=== PATIENT | female | born 1965 | race Caucasian/White ===

== ENCOUNTER → 2016-06-30 | Outpatient (CLI) | payer MEDICAID ==
[~2016-06-30] VITALS: Ht 154.9 cm; Wt 109.8 kg
[~2016-06-30] MED LIST: ADVIL200 MG PO; ALLEGRA 180MG180 MG PO; ALLEGRA ALLERGY60 MG PO; AMOXICILLIN875 MG PO; B COMPLEX & B121 TAB PO; GINGER500 MG PO; GLUCOPHAGE500 MG/TAB PO; IRON325 MG PO; K-PHOS ORIGINA500 MG PO; MAGNESIUM; MOBIC15 MG PO; MULTIPLE VITAMI1 CAP PO; NORCO 325 MG-51 TAB PO; OMEGA-3 FISH1000 MG PO; PERCOCET 325 MG1 TA2 PO; SELENIUM200 MC5 PO; SINGULAIR 110 MG/TAB PO; TUMERIC PO; VITAMIN C500 MG PO; WELLBUTRIN 100100 MG PO
[2016-06-30 09:50] VITALS: BP 134/72; PULSE 73
[2016-06-30 12:18] VITALS: BP 134/72; PULSE 73
[2016-06-30 12:26] VITALS: BP 134/72; PULSE 73
== END ==
LOC: LIGHT 06-29 10:34
DX: E11.65 Type 2 diabetes mellitus with hyperglycemia (principal); M54.5 Low back pain; F33.8 Other recurrent depressive disorders; Z68.42 Body mass index [BMI] 45.0-49.9, adult

== ENCOUNTER 2016-07-02 11:45 | Outpatient (RCR) | payer MEDICAID ==
[~2016-07-02 11:45] MED LIST changes: -MOBIC15 MG PO; -WELLBUTRIN 100100 MG PO
[2016-11-23] MEDS ORDERED: MOBIC15 MG PO (16:57)
[2016-11-23] MEDS ORDERED: WELLBUTRIN 100100 MG PO (16:57)
== END 2016-07-12 12:24 | disposition home or self-care (01) ==
LOC: WSPT 11:45
DX: G89.29 Other chronic pain (principal); R26.2 Difficulty in walking, not elsewhere classified; E66.01 Morbid (severe) obesity due to excess calories

== ENCOUNTER → 2016-07-13 | Outpatient (CLI) | payer MEDICAID ==
[~2016-07-13] MED LIST changes: +MOBIC15 MG PO; +WELLBUTRIN 100100 MG PO
== END ==
LOC: LIGHT 07-06 16:02
DX: E11.65 Type 2 diabetes mellitus with hyperglycemia (principal); M54.5 Low back pain; F33.8 Other recurrent depressive disorders; Z68.42 Body mass index [BMI] 45.0-49.9, adult

== ENCOUNTER → 2016-07-27 | Outpatient (CLI) | payer MEDICAID ==
[~2016-07-27] VITALS: Ht 154.9 cm; Wt 109.5 kg
[2016-07-27 12:57] VITALS: BP 126/82; PULSE 75
[2016-07-27 17:04] VITALS: BP 126/82; PULSE 75
== END ==
LOC: LIGHT 12:45
DX: E11.65 Type 2 diabetes mellitus with hyperglycemia (principal); M06.9 Rheumatoid arthritis, unspecified; M54.5 Low back pain; F33.8 Other recurrent depressive disorders; Z68.42 Body mass index [BMI] 45.0-49.9, adult

== ENCOUNTER → 2016-08-13 | Outpatient (CLI) | payer MEDICAID | LOC: LIGHT 09:52 | DX: E11.65 Type 2 diabetes mellitus with hyperglycemia (principal); M54.5 Low back pain; F33.8 Other recurrent depressive disorders; Z68.42 Body mass index [BMI] 45.0-49.9, adult ==

== ENCOUNTER → 2016-09-14 | Outpatient (CLI) | payer MEDICAID ==
[~2016-09-14] VITALS: Ht 154.9 cm; Wt 110.7 kg
[2016-09-14 16:15] VITALS: BP 140/90; PULSE 60
== END ==
LOC: LIGHT 08-24 11:51
DX: E11.65 Type 2 diabetes mellitus with hyperglycemia (principal); M06.9 Rheumatoid arthritis, unspecified; M54.5 Low back pain; F33.8 Other recurrent depressive disorders; Z68.42 Body mass index [BMI] 45.0-49.9, adult

== ENCOUNTER → 2016-10-12 | Outpatient (CLI) | payer MEDICAID | LOC: COL.RAD 09:45 | DX: Z53.9 Procedure and treatment not carried out, unspecified reason (principal) ==

== ENCOUNTER → 2016-10-19 | Outpatient (CLI) | payer MEDICAID ==
[~2016-10-19] VITALS: Ht 154.9 cm; Wt 110.9 kg
[2016-10-19 13:26] VITALS: BP 128/80; PULSE 68
== END ==
LOC: LIGHT 09:47
DX: E11.65 Type 2 diabetes mellitus with hyperglycemia (principal); M06.9 Rheumatoid arthritis, unspecified; M54.5 Low back pain; F33.9 Major depressive disorder, recurrent, unspecified; Z68.42 Body mass index [BMI] 45.0-49.9, adult

== ENCOUNTER → 2016-11-23 | Outpatient (CLI) | payer MEDICAID ==
[~2016-11-23] VITALS: Ht 154.9 cm; Wt 112.5 kg
[2016-11-23 14:52] VITALS: BP 120/80; PULSE 85
== END ==
LOC: LIGHT 12:15
DX: E11.65 Type 2 diabetes mellitus with hyperglycemia (principal); M06.9 Rheumatoid arthritis, unspecified; M54.5 Low back pain; F33.9 Major depressive disorder, recurrent, unspecified; Z68.42 Body mass index [BMI] 45.0-49.9, adult

== ENCOUNTER 2016-11-24 13:35 | Emergency (ER) | payer MEDICAID ==
[~2016-11-24] VITALS: Ht 154.9 cm; Wt 111.8 kg
[2016-11-24 13:48] VITALS: BP 137/74; TEMP 97.3
[2016-11-24 15:30] LABS: BASO % 0.5 % (0.0-2.0); EOS # 0.2 (0.0-0.7); EOS % 3.3 % (0-4.0); GRAN # 3.3 (1.4-6.5); GRAN % 51.1 % (42.2-75.2); HEMOGLOBIN 15.4 g/dl (12.5-16.0); LYMPH # 2.3 (1.2-3.4); MEAN CELL VOLUME 89 fl (80.0-100.0); MEAN CORPUSCULAR HEMOGLOBIN 29 pg (27.0-31.0); MEAN CORPUSCULAR HGB CONC 33 g/dl (33.0-37.0); MEAN PLATELET VOLUME 11.1 fl (7.4-10.4); MONO # 0.6 (0.1-0.6); MONO % 8.8 % (1.7-9.3); PLATELET COUNT 174 K/mm3 (130-400); RED BLOOD COUNT 5.29 M/mm3 (4.10-5.30); REDCELL DISTRIBUTION WIDTH-CV 13.2 % (11.5-14.5); WHITE BLOOD COUNT 6.5 K/mm3 (4.8-10.8)
[2016-11-24 15:34] LABS: PH 7 (5-8); SQUAMOUS EPITHELIAL 0-2 /hpf; URINE APPEARANCE Clear; URINE BACTERIA Rare /hpf; URINE BILIRUBIN Negative (NEGATIVE); URINE BLOOD Negative (NEGATIVE); URINE COLOR Yellow; URINE GLUCOSE Negative (NEGATIVE); URINE KETONE Negative (NEGATIVE); URINE RBC 0-2 /hpf; URINE UROBILINOGEN Negative (NEGATIVE); URINE WBC 0-2 /hpf
[2016-11-24 15:43] LABS: ADJUSTED CALCIUM 8.8 mg/dL (8.4-10.2); ALBUMIN 4.1 gm/dL (3.5-5.0); BILIRUBIN,TOTAL 1.6 mg/dL (0.0-1.0); C-REACTIVE PROTEIN 1.4 mg/dL (0.0-0.9); CALCIUM 8.9 mg/dL (8.4-10.2); CREATININE, serum 0.52 mg/dL (0.52-1.25); TOTAL PROTEIN 7.8 gm/dL (6.4-8.2)
[2016-11-24 15:44] LABS: POTASSIUM 5.1 mmol/L (3.4-5.0)
[2016-11-24 15:51] LABS: ERYTHROCYTE SEDIMENTATION RATE 5 mm/hr (0-30)
[2016-11-24 16:36] VITALS: PULSE 73
== END 2016-11-24 16:44 | disposition home or self-care (01) ==
LOC: COL.ER 13:35
PROVIDERS: Emergency Medicine
DX: M54.89 Other dorsalgia (principal); M54.2 Cervicalgia; R51 Headache; M79.7 Fibromyalgia; K80.20 Calculus of gallbladder without cholecystitis without obstruction; R79.89 Other specified abnormal findings of blood chemistry; E11.9 Type 2 diabetes mellitus without complications; I10 Essential (primary) hypertension; F32.9 Major depressive disorder, single episode, unspecified
CPT/HCPCS: J1200; J1630; J1885; J7030

== ENCOUNTER → 2016-12-20 | Outpatient (CLI) | payer MEDICAID ==
[~2016-12-20] VITALS: Ht 154.9 cm; Wt 113.2 kg
[2016-12-20 14:26] VITALS: BP 144/90; PULSE 72
== END ==
LOC: LIGHT 08:45
DX: E11.65 Type 2 diabetes mellitus with hyperglycemia (principal); M06.9 Rheumatoid arthritis, unspecified; M54.5 Low back pain; F33.9 Major depressive disorder, recurrent, unspecified; Z68.42 Body mass index [BMI] 45.0-49.9, adult; Z71.3 Dietary counseling and surveillance

== ENCOUNTER → 2017-10-14 | Outpatient (REF) | LOC: ZLAB.WCH 18:01 | DX: Z01.89 Encounter for other specified special examinations (principal) ==

== ENCOUNTER → 2018-03-30 | Outpatient (CLI) | payer MEDICARE, MEDICAID | LOC: SUN.DIA 08:55 | DX: E11.9 Type 2 diabetes mellitus without complications (principal); I10 Essential (primary) hypertension | CPT/HCPCS: G0108 ==

== ENCOUNTER → 2018-05-02 | Outpatient (CLI) | payer MEDICARE, MEDICAID ==
[~2018-05-02] MED LIST changes: +ALLEGRA ALLERG180 MG PO; -ALLEGRA ALLERGY60 MG PO; +BLOOD PRESSURE MED PO; +FLEXERIL 1010 MG/TAB PO; +HCTZ12.5TAB PO; +INSULIN HUMA100 U/ML SQ; +LEVEMIR100 U/ML SQ; +ZESTRIL2.5 MG PO
== END ==
LOC: SUN.DIA 08:29
DX: E11.9 Type 2 diabetes mellitus without complications (principal); I10 Essential (primary) hypertension

== ENCOUNTER 2018-05-03 08:25 | Inpatient (IN) | payer MEDICARE, MEDICAID ==
[~2018-05-03] VITALS: Ht 154.9 cm; Wt 114.3 kg
[2018-05-07] MEDS ORDERED: MACRODANTIN100 PO (14:18)
[2018-05-09] MEDS ORDERED: NORCO 325 MG-51 TAB PO (14:18)
[2018-05-24] VITALS (13 sets, daily range): BP systolic 107–150; BP diastolic 55–85; PULSE 65–94; TEMP 98–99.1
[2018-05-24] MEDS ORDERED: TURMERIC500 MG PO (08:25)
[2018-05-24] MEDS ORDERED: SELENIUM2 PO (08:27)
[2018-05-24] MEDS ORDERED: [UNRECOGNIZED DRUG - OTHER] PO (08:28)
[2018-05-25 00:20] VITALS: BP 113/47; PULSE 67; TEMP 98.7
[2018-05-25 03:17] VITALS: BP 108/54; PULSE 76; TEMP 98.2
[2018-05-25 07:55] VITALS: BP 123/56; PULSE 70; TEMP 97.9
[2018-05-25 12:03] VITALS: BP 118/51; PULSE 65; TEMP 98
[2018-05-25 16:09] VITALS: BP 111/55; PULSE 65; TEMP 97.8
== END 2018-05-25 18:40 | disposition home or self-care (01) | DRG 621 ==
LOC: INPTSU 05-24 07:13 → SURG 05-24 09:45
PROVIDERS: Surgery
PROC: 0DB64Z3 Excision of Stomach, Percutaneous Endoscopic Approach, Vertical (ICD-10-PCS; principal; 2018-05-24 09:45)
DX: E66.01 Morbid (severe) obesity due to excess calories (principal); Z68.42 Body mass index [BMI] 45.0-49.9, adult; G89.21 Chronic pain due to trauma; K76.0 Fatty (change of) liver, not elsewhere classified; M79.7 Fibromyalgia; E11.9 Type 2 diabetes mellitus without complications
CPT/HCPCS: J0690; J1100; J1815; J1885; J2405; J2704; J2710; J3010; J7120

== ENCOUNTER → 2018-05-09 | Outpatient (CLI) | payer MEDICARE, MEDICAID ==
[~2018-05-09] MED LIST changes: +MACRODANTIN100 PO
== END ==
LOC: LIGHT 12:35
DX: E11.65 Type 2 diabetes mellitus with hyperglycemia (principal); M54.5 Low back pain; F32.9 Major depressive disorder, single episode, unspecified; Z68.42 Body mass index [BMI] 45.0-49.9, adult; Z71.3 Dietary counseling and surveillance

== ENCOUNTER → 2018-06-19 | Outpatient (CLI) | payer MEDICARE, MEDICAID ==
[~2018-06-19] VITALS: Ht 154.9 cm; Wt 106.6 kg
[~2018-06-19] MED LIST changes: +SELENIUM2 PO; +TURMERIC500 MG PO; +[UNRECOGNIZED DRUG - OTHER] PO
[2018-06-19 13:58] VITALS: BP 110/70; PULSE 72
== END ==
LOC: LIGHT 11:21
DX: E11.65 Type 2 diabetes mellitus with hyperglycemia (principal); M54.5 Low back pain; Z98.84 Bariatric surgery status; E66.01 Morbid (severe) obesity due to excess calories; Z68.41 Body mass index [BMI] 40.0-44.9, adult; Z71.3 Dietary counseling and surveillance

== ENCOUNTER → 2018-09-20 | Outpatient (CLI) | payer MEDICARE, MEDICAID | LOC: SUN.DIA 07-04 15:46 | DX: E11.9 Type 2 diabetes mellitus without complications (principal); I10 Essential (primary) hypertension; Z79.4 Long term (current) use of insulin; E66.9 Obesity, unspecified | CPT/HCPCS: G0270 ==

== ENCOUNTER → 2018-10-09 | Outpatient (CLI) | payer MEDICARE, MEDICAID ==
[~2018-10-09] VITALS: Ht 154.9 cm; Wt 98.0 kg
[2018-10-09 13:48] VITALS: BP 114/84; PULSE 80
== END ==
LOC: LIGHT
DX: E11.65 Type 2 diabetes mellitus with hyperglycemia (principal); M54.5 Low back pain; Z98.84 Bariatric surgery status; Z68.41 Body mass index [BMI] 40.0-44.9, adult; Z71.3 Dietary counseling and surveillance
CPT/HCPCS: G0463

== ENCOUNTER → 2018-10-18 | Outpatient (REF) | LOC: ZLAB.WCH 17:08 | DX: Z01.89 Encounter for other specified special examinations (principal) ==

== ENCOUNTER → 2018-11-08 | Outpatient (CLI) | payer MEDICARE, MEDICAID | LOC: LIGHT 08:00 | DX: E11.65 Type 2 diabetes mellitus with hyperglycemia (principal); M54.5 Low back pain; Z98.84 Bariatric surgery status; E66.01 Morbid (severe) obesity due to excess calories; Z68.41 Body mass index [BMI] 40.0-44.9, adult; Z71.3 Dietary counseling and surveillance | CPT/HCPCS: G0463 ==

== ENCOUNTER → 2022-01-06 | Outpatient (CLI) | payer MEDICARE, MEDICAID ==
[~2022-01-06] VITALS: Ht 155.1 cm; Wt 93.0 kg
[~2022-01-06] MED LIST changes: +COMPLETE MULTI1 TAB PO; +OSCAL 500 TAB500 MG PO; +ZYRTEC 10MG10 MG PO
[2022-01-06 09:11] VITALS: BP 131/85; PULSE 67; TEMP 98.2
[2022-01-06 10:10] VITALS: BP 112/81; PULSE 75
[2022-01-06 10:20] VITALS: BP 118/73; PULSE 69
[2022-01-06 10:30] VITALS: BP 115/73; PULSE 73
[2022-01-06 10:45] VITALS: BP 136/81; PULSE 67
[2022-01-06 11:00] VITALS: BP 138/82; PULSE 60
== END ==
LOC: COL.RAD 12-04 08:15
DX: M54.2 Cervicalgia (principal)
CPT/HCPCS: J2704; J3010; J7120